=== PATIENT | male | born 1995 | race Caucasian/White ===

== ENCOUNTER 2016-04-16 00:08 | Emergency (ER) | payer OTHER ==
[~2016-04-16] VITALS: Ht 172.7 cm; Wt 80.0 kg
[2016-04-16 00:22] VITALS: TEMP 36.7; Ht 172.7 cm; Wt 80.0 kg
[2016-04-16 01:06] LABS: HEMATOCRIT 44.5 % (42-52); MEAN CELL VOLUME 82.3 fL (80-100); MEAN CORPUSCULAR HEMOGLOBIN 30.5 pg (25-34); MEAN CORPUSCULAR HGB CONC 37.1 g/dl (32-36); MEAN PLATELET VOLUME 9.3 fL (7.4-10.4); PLATELET COUNT 182 K/uL (130-400); RED BLOOD COUNT 5.41 M/uL (4.7-6.1); WHITE BLOOD COUNT 8.82 K/uL (4.8-10.8)
[2016-04-16 01:23] LABS: ALT/SGPT 31 U/L (12-78); AST/SGOT 23 U/L (15-37); BLOOD UREA NITROGEN 12 mg/dl (7-18); BUN/CREATININE RATIO 9.3 (10-20); CALCIUM 8.3 mg/dl (8.5-10.1); CARBON DIOXIDE 24 mmol/L (21-32); CHLORIDE 106 mmol/L (98-107); GLUCOSE 107 mg/dl (70-99); POTASSIUM 3.6 mmol/L (3.5-5.1); SODIUM 143 mmol/L (136-145)
[2016-04-16 01:23] LABS: URINE APPEARANCE CLEAR (CLEAR); URINE BILIRUBIN NEG (NEG); URINE COLOR YELLOW; URINE NITRITE NEG (NEG); URINE PH 5.5 (4.5-7.5); UROBILINOGEN NEG (NEG)
[2016-04-16 01:26] LABS: ALKALINE PHOSPHATASE 90 U/L (45-117)
[2016-04-16 01:30] LABS: MANUAL MICROSCOPIC REQUIRED? NO; REVIEW REQ? NO
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
[2016-04-16 08:45] VITALS: BP 140/74; PULSE 75; O2SAT 99
== END 2016-04-16 08:46 | disposition home or self-care (01) ==
LOC: C.EDA 00:10
DX: S01.21XA Laceration without foreign body of nose, initial encounter (principal); S05.92XA Unspecified injury of left eye and orbit, initial encounter; Y04.0XXA Assault by unarmed brawl or fight, initial encounter; T51.0X1A Toxic effect of ethanol, accidental (unintentional), initial encounter